=== PATIENT | female | born 1995 | race Caucasian/White ===

== ENCOUNTER 2022-01-07 13:38 | Inpatient (IN) | payer OTHER ==
[~2022-01-07] VITALS: Ht 162.6 cm; Wt 71.7 kg
[2022-01-07] MEDS ORDERED: PRENATAL TABLE1 EAC3 (14:41)
[2022-01-07] MEDS ORDERED: SYNTHROID75 MCG (14:41)
== END 2022-01-09 15:55 | disposition home or self-care (01) | DRG 807 ==
LOC: OBS/DEL 13:38 → LDR 15:25 → SURG-SUITE 15:25
PROVIDERS: ADMIT Obstetrics & Gynecology; ATTEND Obstetrics & Gynecology
PROC: 10E0XZZ Delivery of Products of Conception, External Approach (ICD-10-PCS; principal; 2022-01-07)
PROC: 0KQM0ZZ Repair Perineum Muscle, Open Approach (ICD-10-PCS; 2022-01-07)
PROC: 4A1HXCZ Monitoring of Products of Conception, Cardiac Rate, External Approach (ICD-10-PCS; 2022-01-07)
DX: O70.1 Second degree perineal laceration during delivery (principal); Z37.0 Single live birth; O99.283 Endocrine, nutritional and metabolic diseases complicating pregnancy, third trimester; E03.8 Other specified hypothyroidism; Z3A.39 39 weeks gestation of pregnancy; Z20.822 Contact with and (suspected) exposure to COVID-19